=== PATIENT | female | born 1980 ===

== ENCOUNTER 2023-05-20 08:56 | Outpatient (CLI) | payer OTHER | END 2023-05-20 08:57 | disposition home or self-care (01) | LOC: ULT 08:56 → EEVIPCON 08:56 → ULT 08:57 | DX: R10.11 Right upper quadrant pain (principal); Z90.49 Acquired absence of other specified parts of digestive tract | CPT/HCPCS: 76700 ==

== ENCOUNTER 2023-12-28 14:45 | Inpatient (IN) | payer OTHER ==
[2023-12-28 15:15] LABS: #Basophils 0.05 10x3/uL (0.0-0.2); %Basophils 0.5 % (0.0-1.0); %Eosinophils 0.8 % (0.0-10.0); %Lymphocytes 31.4 % (21.0-51.0); %Monocytes 4.8 % (0.0-10.0); %Neutrophils 62.2 % (42.0-75.0); Hematocrit 37.2 % (36.0-47.0); Hemoglobin 12.9 g/dL (12.0-16.0); Mean Corpuscular HGB CONC 34.7 g/dL (32.0-36.0); Mean Corpuscular Hemoglobin 31.1 pg (27.0-31.0); Mean Corpuscular Volume 89.6 fL (78.0-98.0); Mean Platelet Volume 9.3 fL (7.4-10.4); Platelet Count 406 10x3/uL (130-400); RBC Distribution Width 12.6 % (11.5-14.5); Red Blood Cell (RBC) Count 4.15 mill/uL (4.20-5.40)
[2023-12-28 15:26] LABS: ALT (SGPT) 13 U/L (8-55); AST (SGOT) 12 U/L (5-34); Albumin 3.5 g/dL (3.5-5.0); Alkaline Phosphatase 87 U/L (40-110); Anion Gap 9 mmol/L (10-20); BUN (Urea Nitrogen) 13 mg/dL (7.0-18.7); Bilirubin, Total 0.2 mg/dL (0.2-1.2); Calc. Creatinine Clearance 0 mL/min (70-130); Calcium 9.2 mg/dL (7.8-10.44); Carbon Dioxide 25 mmol/L (22-29); Chloride 108 mmol/L (98-107); Estimated GFR 101; Globulin 2.9 g/dL (2.4-3.5); Glucose 114 mg/dL (70-105); Potassium 4.1 mmol/L (3.5-5.1); Protein, Total 6.4 g/dL (6.0-8.3); Sodium 138 mmol/L (136-145)
[2023-12-28] MEDS ORDERED: Tenecteplase 50 MG ONE (15:27)
[2023-12-28 15:29] LABS: INR-International Normal Ratio 0.9; Prothrombin Time 12.6 sec (12.0-14.7)
[2023-12-28] MEDS ORDERED: Iopamidol-370 76% 500 ML MDV (1 ML CHARGE) ONE ×2 (15:29)
[2023-12-28 15:30] LABS: PTT 32.4 sec (22.9-36.1)
[2023-12-28 15:31] LABS: Troponin I Less than 0.010 ng/mL (< 0.028)
[2023-12-28] MEDS ORDERED: Acetaminophen 500 MG TAB ONE ×2 (15:44→15:46)
[2023-12-28 15:57] LABS: Bacteria/HPF None Seen HPF (None Seen); Bilirubin Negative (Negative); Blood, Urine Negative (Negative); CAUTI Indications for Culture Alt mental st,lethar; Clarity Clear (Clear); Glucose, Urine (Dipstick) Normal (Negative); Ketone, Urine Negative (Negative); Leukocyte Negative Leu/uL (Negative); Nitrite Negative (Negative); Protein, Urine (Dipstick) Negative (Neg-Trace); RBC/HPF 0-3 HPF (0-3); Specific Gravity, Urine 1.038 (1.002-1.036); Squamous Epithelial 0-3 HPF (0-3); Urobilinogen Normal mg/dL (Less than 2); WBC/HPF 0-3 HPF (0-3); pH, Urine 7.5 (5.0-9.0)
[2023-12-28 15:58] LABS: Urine Culture Reflex No No
[2023-12-28 16:02] LABS: Amphetamine Not Detected (NotDetected); Barbiturates Screen Not Detected (NotDetected); Benzodiazepine Screen Not Detected (NotDetected); Cocaine Metabolite Screen Not Detected (NotDetected); Methadone Not Detected (NotDetected); Methamphetamine Not Detected (NotDetected); Opiate Screen Not Detected (NotDetected); Oxycodone Screen Not Detected (NotDetected); Phencyclidine (PCP) Not Detected (NotDetected); THC/Cannabinoid Screen Not Detected (NotDetected); Tricyclic Screen Not Detected (NotDetected)
[2023-12-28 17:50] VITALS: BMI 32.5
[2023-12-28] MEDS ORDERED: Senokot S 8.6-50 MG TAB PO PRN (17:54)
[2023-12-28] MEDS ORDERED: Calcium Carbonate 500 MG ChewTAB PO PRN (17:54)
[2023-12-28] MEDS ORDERED: Acetaminophen 325 MG TAB PO PRN (17:54)
[2023-12-28] MEDS ORDERED: niCARdipine 25 MG in Sodium Chloride 0.9% 250 ML 250 ML IVPB PRN (17:56)
[2023-12-28] MEDS ORDERED: Labetalol HCl 100 MG/20 ML VIAL SLOW IVP PRN (17:56)
[2023-12-28] MEDS ORDERED: hydrALAZINE 20 MG/ML VIAL SLOW IVP PRN (17:56)
[2023-12-28] MEDS ORDERED: Albuterol 2.5 MG (3 mL) NEB NEB PRN (18:21)
[2023-12-28] MEDS: Sodium Chloride 0.9% 1,000 ML IV SCH (18:29)
[2023-12-28] MEDS: Prochlorperazine Maleate 5 MG TAB PO PRN (18:30)
[2023-12-28] MEDS: Acetaminophen 325 MG TAB PO SCH (19:24)
[2023-12-28] MEDS: Mometasone 200 MCG/Formoterol 5 MCG 120 PUFF INHALER INH SCH (19:38)
[2023-12-28] MEDS: Morphine 4 MG/ML VIAL SLOW IVP SCH (21:17)
[2023-12-28] MEDS: Atorvastatin Calcium 40 MG TAB PO SCH (21:17)
[2023-12-28] MEDS: Famotidine 20 MG TAB PO SCH (21:17)
[2023-12-29] MEDS: Citalopram 20 MG TAB PO SCH (08:20)
[2023-12-29] MEDS: Magnesium 2 GM/50 ML(in water) 2 GM in Premix 1 BAG IVPB SCH (12:54)
[2023-12-29] MEDS: Hydrocortisone Sod Succ/PF 100 mg/2 ml Vial IVP SCH (12:54)
[2023-12-29] MEDS: diphenhydrAMINE 50 MG/ML VIAL IVP SCH (12:54)
[2023-12-29 16:19] LABS: #Basophils Less than 0.03 10x3/uL (0.0-0.2); #Eosinphils Less than 0.03 10x3/uL (0.0-0.7); %Basophils 0.2 % (0.0-1.0); %Eosinophils 0.2 % (0.0-10.0); %Lymphocytes 13.5 % (21.0-51.0); %Monocytes 1.3 % (0.0-10.0); %Neutrophils 84.4 % (42.0-75.0); Hematocrit 36.8 % (36.0-47.0); Hemoglobin 12.9 g/dL (12.0-16.0); Mean Corpuscular HGB CONC 35.1 g/dL (32.0-36.0); Mean Corpuscular Hemoglobin 31.2 pg (27.0-31.0); Mean Corpuscular Volume 88.9 fL (78.0-98.0); Mean Platelet Volume 9.2 fL (7.4-10.4); Platelet Count 399 10x3/uL (130-400); RBC Distribution Width 12.7 % (11.5-14.5); Red Blood Cell (RBC) Count 4.14 mill/uL (4.20-5.40)
[2023-12-29 16:41] LABS: Hemoglobin A1c 5.3 % (4.0-6.0)
[2023-12-29 16:44] LABS: Anion Gap 10 mmol/L (10-20); BUN (Urea Nitrogen) 10 mg/dL (7.0-18.7); Calc. Creatinine Clearance 129 mL/min (70-130); Calcium 9.2 mg/dL (7.8-10.44); Carbon Dioxide 21 mmol/L (22-29); Cardiac Risk 3.9 (Less than 4.5); Chloride 111 mmol/L (98-107); Cholesterol 182 mg/dl (< 200 Desired); Estimated GFR 98; Glucose 155 mg/dL (70-105); HDL Cholesterol 47 mg/dL (>60 Neg Risk); LDL Cholesterol, Calculated 117 mg/dL; Magnesium 2.5 mg/dL (1.6-2.6); Sodium 138 mmol/L (136-145); Triglycerides 88 mg/dL (Less than 150)
[2023-12-29] MEDS: Aspirin 325 mg Enteric Coated Tablet PO SCH (17:14)
[2023-12-29 17:26] VITALS: BP 147/78
[2023-12-29 18:09] LABS: Troponin I Less than 0.010 ng/mL (< 0.028)
[2023-12-29 21:31] LABS: Troponin I Less than 0.010 ng/mL (< 0.028)
[2023-12-29] MEDS: Enoxaparin 40 MG (0.4 mL) SYRINGE SC SCH (22:00)
[2023-12-29] MEDS: Topiramate 25 MG TAB PO SCH (22:00)
[2023-12-30 07:30] LABS: Magnesium 2.9 mg/dL (1.6-2.6)
[2023-12-30] MEDS: Topiramate 25 MG TAB PO SCH (10:07)
[2023-12-30 11:12] VITALS: TEMP 98.4
== END 2023-12-30 11:45 | disposition home or self-care (01) | DRG 62 ==
LOC: ERS 14:45 → EEVIPCON 16:26 → CCU 16:26
PROVIDERS: ADMIT Internal Medicine; ATTEND Internal Medicine
DX: I63.9 Cerebral infarction, unspecified (principal); G81.94 Hemiplegia, unspecified affecting left nondominant side; R07.89 Other chest pain; F41.9 Anxiety disorder, unspecified; F43.10 Post-traumatic stress disorder, unspecified; J45.909 Unspecified asthma, uncomplicated; Z79.899 Other long term (current) drug therapy; Z90.49 Acquired absence of other specified parts of digestive tract; Z98.890 Other specified postprocedural states; G43.909 Migraine, unspecified, not intractable, without status migrainosus; G40.909 Epilepsy, unspecified, not intractable, without status epilepticus; F31.9 Bipolar disorder, unspecified
CPT/HCPCS: 36415; 36416; 37195; 70450; 70496; 70498; 70551; 71045; 80048; 80053; 80061; 80306; 81001; 83036; 83735; 84484; 85025; 85610; 85730; 93005; 93306; 94760; J1200; J1650; J1720; J3101; J3475; Q0164; Q9967